=== PATIENT | male | born 1970 | race Caucasian/White ===

== ENCOUNTER 2023-08-23 12:08 | Inpatient (IN) | payer MEDICARE, BC, SELFPAY ==
[2023-08-23] VITALS (15 sets, daily range): BP systolic 79–152; BP diastolic 80–116; PULSE 87–104; BMI 36.3; BMI 36.0
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
[2023-08-23 05:33] LABS: % Basophils 0.6 % (0-2); % Eosinophils 0.2 % (0-6); % Immature Granulocytes 0.4 % (0-0.5); % Lymphocytes 18.3 % (20.5-51.1); % Neutrophils 73.5 % (42.2-75.2); Absolute Basophils 0.1 10^3/uL (0-0.2); Absolute Lymphocytes 1.6 10^3/uL (1.2-3.4); Absolute Monocytes 0.6 10^3/uL (0.1-0.6); Absolute Neutrophils 6.3 10^3/uL (1.4-6.5); Hematocrit 47.3 % (39.0-52.0); Hemoglobin 16.3 g/dL (13.0-18.0); Mean Corp Hgb Conc. 34.5 g/dL (33.0-37.0); Mean Corpuscular Volume 90.1 fL (80.0-94.0); Mean Platelet Volume 10.9 fL (7.4-10.4); Nucleated Red Blood Cells % 0 % (-); Platelet Count 214 10^3/uL (130-400); Red Blood Cell Count 5.25 10^6/uL (4.70-6.10); Red Cell Dist. Width 14.4 % (11.5-14.5); White Blood Cell Count 8.6 10^3/uL (4.8-10.8)
[2023-08-23] MEDS: NSS 1000 IV (06:01)
[2023-08-23 06:03] LABS: ALT (SGPT) 45 U/L (0-50); AST (SGOT) 32 U/L (17-59); Albumin 4.6 g/dl (3.5-5.0); Alkaline Phosphatase 84 U/L (38-126); Blood Urea Nitrogen 14 mg/dl (9-20); Calcium 9.7 mg/dl (8.4-10.2); Carbon Dioxide 21 mmol/L (22-30); Chloride 103 mmol/L (98-107); Estimated Creatinine Clearance 117 ml/min; Glucose 124 mg/dl (70-99); Potassium 3.6 mmol/L (3.5-5.1); Sodium 136 mmol/L (135-145); Total Bilirubin 0.7 mg/dl (0.2-1.3); Total Protein 7.3 g/dl (6.3-8.2); eGFR > 60.00
[2023-08-23 06:07] LABS: Troponin I < 0.012 ng/ml
[2023-08-23] MEDS: ASPIRIN 325 MG PO (07:46)
[2023-08-23 08:09] LABS: Urine Albumin Negative (Neg - Trace); Urine Bilirubin Negative (Negative); Urine Character Clear (Clear); Urine Color Yellow; Urine Glucose Negative (Negative); Urine Ketone 1+ (Negative); Urine Leukocyte Negative (Negative); Urine Nitrite Negative (Negative); Urine Occult Blood Negative (Negative); Urine Urobilinogen Negative (Neg - 1+)
--- NOTE | 2023-08-23 09:38 | PHANOTE ---
08/23/2023, [employer] tech, spoke to pt. to obtain their med. history; pt. states to be taking Tramadol 50 mg Q6HPRN for back pain; per pt., he got this med. filled roughly 6 months ago at the [facility] in [place] and now he was switched over to
[facility] in [place]; does not show up in his pharmacy fill data or [facility] records or PDMP. Called [facility] in [place] and [facility] in [place] and they do not have this med. on his profile. Could not confirm it.
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
[2023-08-23 13:52] LABS: INR 1.03; PT 13.5 Sec (11.4-14.6)
--- NOTE | 2023-08-23 14:56 | CM ---
Patient seen at bedside. Patient states that he lives with his and that they live in a 2 story home. Patient has no DME at home and no past need for VN or SNF services. Patient PCP is Dr. Mcguire and he uses the [facility] in [place] for his
pharmacy needs. Patient plan is to go home with no needs. CM will continue to follow for discharge planning needs.
Plan; home with no needs vs home with VN
[2023-08-23 17:18] LABS: Spinal Fluid Glucose 55 mg/dl (40-70); Spinal Fluid Protein 73 mg/dl (12-60)
[2023-08-23 18:08] LABS: CSF Clarity Clear; CSF Color Colorless; CSF Tube # 1
[2023-08-23 18:09] LABS: Red Cell Count/CSF 228 mm^3; White Cell Count/CSF 4 mm^3 (0-5)
--- NOTE | 2023-08-23 18:12 | PTCARENOTE ---
Received patient to room 418-1. awake alert and oriented. Pain is top of head extends to top of neck, rates a 7 on a scale of 1-10. Oriented to room and surroundings. Aware to call for any assistance getting up. Call friend in reach.
[2023-08-23] MEDS: CYMBALTA DELAYED RELEASE 60 MG PO (21:07)
[2023-08-23] MEDS: LAMICTAL 100 MG PO (21:08)
[2023-08-23] MEDS: MORPHINE SULFATE 2 MG IV (21:08)
[2023-08-23] MEDS: SEROQUEL 50 MG PO (21:08)
[2023-08-24 07:30] VITALS: BP 137/92
[2023-08-24] MEDS: ULTRAM 50 MG PO (07:42)
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
[2023-08-24 11:18] VITALS: BP 125/92; BP 125/94; BP 128/94; PULSE 102; PULSE 98
[2023-08-24 11:20] VITALS: BP 125/92; BP 125/94; BP 128/94; PULSE 98
[2023-08-24] MEDS: MORPHINE SULFATE 2 MG IV ×2 (11:23→20:19)
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
[2023-08-24 14:27] LABS: Erythrocyte Sed Rate 6 mm/hour (0-20)
[2023-08-24 14:33] LABS: C-Reactive Protein < 5.00 mg/L (0.0-10.00)
[2023-08-24 14:50] LABS: Amphetamines Negative (Negative); Barbiturates Negative (Negative); Benzodiazepines Negative (Negative); Buprenorphine Negative (Negative)
[2023-08-24 14:51] LABS: Cocaine Negative (Negative); Marijuana Positive (Negative); Methadone Negative (Negative); Methamphetamines Negative (Negative); Opiates Positive (Negative); Phencyclidine Negative (Negative); Tricyclic Antidepressants Positive (Negative)
[2023-08-24 14:54] LABS: Magnesium 2.2 mg/dl (1.6-2.3)
[2023-08-24 15:12] LABS: Fentanyl, Urine Negative (Negative)
[2023-08-24 15:46] VITALS: BP 146/86
[2023-08-24] MEDS: CYMBALTA DELAYED RELEASE 60 MG PO (21:01)
[2023-08-24] MEDS: SEROQUEL 50 MG PO (21:01)
[2023-08-24] MEDS: LAMICTAL 100 MG PO (21:01)
[2023-08-24 23:00] VITALS: BP 129/86; BP 130/86; BP 130/87; PULSE 93; PULSE 94; PULSE 95
[2023-08-25] MEDS: ULTRAM 50 MG PO ×2 (07:28→20:34)
[2023-08-25 07:30] VITALS: BP 141/84
--- NOTE | 2023-08-25 08:28 | W.PN.NEURO.1 ---
Today's Communication / Plan
-
.
Neuro Assessment/Plan
Assessment
This is a 53-year-old male who presented to on August 23, 2023 with neck pain, numbness in the face and head, and dizziness following a cervical epidural performed a week ago.
-CT Head 08/23/23: No acute intracranial abnormality.
-CT Cervical Spine 08/23/23: (artifact limited) C3-C4 through C6-C7 DJD.
-LP 08/23/23: WBC 4, RBC 228, glucose 55, protein 73
-CTA head/neck 08/24/23: Patent anterior communicating and right posterior communicating artery. Patent bilateral anterior, middle and posterior cerebral arteries. Unremarkable, no finding to suggest dissection.
I.� Tension headache MOH secondary to recent sinusitis.
II.� Peripheral vertigo
III.� Chronic pain syndrome
Plan
-Avoid heavy lifting
-Avoid medications known to cause headache associated
-Lamotrigine level and Lyme screen pending.
-IV Toradol 30 mg, Reglan 10 mg, Benadryl 25 mg Q8h PRN for moderate to severe headache.
-PT/OT evaluations.
-Orthostatic vital signs are negative.
-Follow-up with outpatient Neurologist/pain specialist.
-Neurology will follow on an as-needed basis, please contact our service with any questions/concerns.
Subjective/Objective
Subjective Data
Date of Service: August 25, 2023
No acute events overnight. Patient reports mild improvement of his head numbness and his strength feels improved; still endorsing neck discomfort 5/10 and a mild headache that he describes as posterior head pressure. He also reports intermittent
dizziness with movement. He denies any vision changes, speech/swallow difficulty, nausea, chest pain, palpitations, and shortness of breath.
Objective Data
Vital Signs
Temp Pulse Resp BP Pulse Ox
97.9 F 93 16 129/86 95
08/24/23 23:00 03/21/24 23:00 08/24/23 23:00 08/24/23 23:00 08/24/23 23:00
Lab Results
08/23/23 05:26
08/23/23 05:26
PT 13.5 Sec (11.4-14.6) 08/23/23 13:21
INR 1.03 08/23/23 13:21
Sodium 136 mmol/L (135-145) 08/23/23 05:26
Potassium 3.6 mmol/L (3.5-5.1) 08/23/23 05:
BUN 14 mg/dl (9-20) 08/23/23 05:
Glucose 124 mg/dl (70-99) H 08/23/23 05:26
Calcium 9.7 mg/dl (8.4-10.2) 08/23/23 05:26
Ur Buprenorphine Negative (Negative) 08/24/23 14:09
Patient Allergies
gabapentin Allergy (Verified 08/23/23 05:02)
Impulsive, suicidal thoughts
Review of Systems
-
History Source: Patient
EENT: Negative Blurry Vision, Decreased Vision or Swallowing Difficulty
Respiratory: Negative Cough or Trouble Breathing
Cardiac: Negative Chest Pain or Palpitations
Abdomen/GI: Negative Nausea
Neuro: Dizzy, Headache, Weakness and Numbness; Negative Ataxia, Tremors or Speech Problem
Physical Exam
-
General: No Apparent Distress
Eyes: No Ptosis and PERRLA
HEENT: Normocephalic and Atraumatic
Neck: No Bruits Bilaterally and Full Range of Motion
Respiratory: No Dyspnea
GI: Non-distended
Extremities: No Clubbing, No Cyanosis and No Edema
Psych: Unremarkable
Extended Neurological Exam
Mood & Affect: Mood Unremarkable and Affect Unremarkable
Attention Span & Concentration: Awake, Alert and Interactive
Memory: Unremarkable (AAOx3) and Able to Recall
Tremor: Hand Tremor Absent and Head Tremor Absent
Involuntary Movement: None
Speech: Quality Unremarkable, Quantity Unremarkable and Rate of Production Unremarkable
Cranial Nerve II: Left Eye: Pupillary Reactivity Unremarkable, Pupillary Size Unremarkable and Visual Rhoades Intact
Cranial Nerve II: Right Eye: Pupillary Reactivity Unremarkable, Pupillary Size Unremarkable and Visual Rhoades Intact
Cranial Nerves III, IV, : Extraocular Movement: Extraocular Movement Full in all Directions
Cranial Nerve V: Facial Sensation: Intact to Light Touch
Cranial Nerve VII: Facial Symmetry: Normal Facial Symmetry
Cranial Nerve VIII: Hearing: Unremarkable Hearing to Normal Conversational Volume
Cranial Nerves IX, X: Palate Movement: Palate Elevation Symmetric
Cranial Nerve XI: Shoulder Shrug: Unremarkable
Cranial Nerve XII: Tongue Protusion: Midline
Muscle Strength, Overall: Full Throughout
Muscle Bulk & Tone: Bulk Unremarkable and Tone Unremarkable
Pronator Drift: No Drift in Upper Extremities and No Drift in Lower Extremities
Touch Sensation: Double Simultaneous Stimulation Unremarkable
Coordination: [id number]-[id number] Testing Unremarkable
Data Reviewed
-
CT-A: Report Reviewed and Image Reviewed
CT Head: Report Reviewed and Image Reviewed
CT Cervical Spine: Report Reviewed and Image Reviewed
Medical Test Reports: Report Reviewed (LP)
Labs: Report Reviewed
Lipid Profile: Report Reviewed
HgbA1C: Report Reviewed
Reviewed with: Physician and Patient
Medications
-
Active Medications
Generic Name Dose Route Start Last Admin
Trade Name Freq PRN Reason Stop Dose Admin
Acetaminophen 650 mg 08/23/23 12:31
Acetaminophen 325 Mg Tablet PO 09/20/23 12:30
Q4HPRN PRN
mild pain /fever >100.4
Cyclobenzaprine HCl 10 mg 08/23/23 12:31
Cyclobenzaprine 10 Mg Tablet PO 09/20/23 12:30
Q8HPRN PRN
Back pain
Duloxetine HCl 60 mg 08/23/23 22:00 08/24/23 21:01
Duloxetine Delayed Release 60 Mg Capsule PO 09/20/23 21:59 60 mg
HS GABBI Administration
Lamotrigine 100 mg 08/23/23 22:00 08/24/23 21:01
Lamotrigine 100 Mg Tablet PO 09/20/23 21:59 100 mg
HS GABBI Administration
Morphine Sulfate 2 mg 08/23/23 12:31 08/24/23 20:19
Morphine 2 Mg/Ml Syringe IV 09/06/23 12:30 2 mg
Q4HPRN PRN Administration
severe pain
Quetiapine Fumarate 50 mg 08/23/23 22:00 08/24/23 21:01
Quetiapine 25 Mg Tablet PO 09/20/23 21:59 50 mg
HS GABBI Administration
Tramadol HCl 50 mg 08/23/23 12:31 08/25/23 07:28
Tramadol Hcl 50 Mg Tablet PO 09/20/23 12:30 50 mg
Q6HPRN PRN Administration
moderate pain
Home Medications
Medication Instructions Recorded
lamotrigine 100 mg tablet 100 mg PO HS Neurological 10/25/16
Condition ##0
duloxetine 60 mg capsule,delayed 60 mg PO HS Depression 10/19/17
release
quetiapine 50 mg tablet (Seroquel) 50 mg PO HS Mental Health/Anxiety 10/19/17
Medical Marijuana 1 gummy PO HSPRN PRN mild pain 08/23/23
Medical Marijuana 10 inh inhalation HSPRN PRN mild 08/23/23
pain
Stay Ready Fiber Supplement 3 cap PO HS Supplement 08/23/23
chlorhexidine gluconate 0.12 % 15 ml buccal BID oral hygiene 08/23/23
mouthwash
cyclobenzaprine 10 mg tablet 10 mg PO Q8HPRN PRN Back pain 08/23/23
tramadol 50 mg tablet 50 mg PO Q6HPRN PRN back pain 08/23/23
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
[2023-08-25] MEDS: COMPAZINE 10 MG IV (10:45)
[2023-08-25] MEDS: BENADRYL 25 MG IV (10:46)
[2023-08-25] MEDS: TORADOL 15 MG IV (10:47)
--- NOTE | 2023-08-25 14:11 | CM ---
Patient sleeping in bed. Patient with no needs at this time. CM will continue to follow for discharge planning needs
[2023-08-25 16:01] VITALS: BP 121/81; BP 124/84; BP 131/89; PULSE 105; PULSE 86; PULSE 92
[2023-08-25] MEDS: CYMBALTA DELAYED RELEASE 60 MG PO (21:07)
[2023-08-25] MEDS: LAMICTAL 100 MG PO (21:07)
[2023-08-25] MEDS: SEROQUEL 50 MG PO (21:07)
[2023-08-25 23:00] VITALS: BP 143/85
[2023-08-26 07:00] VITALS: BP 129/77
[2023-08-26] MEDS: ULTRAM 50 MG PO (07:54)
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
--- NOTE | 2023-08-26 11:51 | W.DS.TRANS ---
DC Summary - [employer]
-
Discharge Instructions:
Discharge Diagnosis/Procedures Post epidural spinal headache
Diet Regular
Activity As tolerated
Driving Restrictions As prior to admission
Instructions:
Stand-Alone Forms:
Changes to Home Medications: No
Discharge Medications:
DC Medications w/original date entered in [employer]
lamotrigine 100 mg tablet 100 mg PO HS Neurological Condition ##0 10/25/16
duloxetine 60 mg capsule,delayed release 60 mg PO HS Depression 10/19/17
quetiapine 50 mg tablet (Seroquel) 50 mg PO HS Mental Health/Anxiety 10/19/17
Medical Marijuana 1 gummy PO HSPRN PRN mild pain 08/23/23
Medical Marijuana 10 inh inhalation HSPRN PRN mild pain 08/23/23
Stay Ready Fiber Supplement 3 cap PO HS Supplement 08/23/23
chlorhexidine gluconate 0.12 % mouthwash 15 ml buccal BID oral hygiene 08/23/23
cyclobenzaprine 10 mg tablet 10 mg PO Q8HPRN PRN Back pain 08/23/23
tramadol 50 mg tablet 50 mg PO Q6HPRN PRN back pain 08/23/23
Home Medication Changes
Pending Results: No
[2023-08-26] MEDS: FLUZONE QUAD 2023-2024 SYRINGE 0.5 ML IM (11:58)
[2023-08-26] MEDS: IMITREX 50 MG PO (11:59)
--- NOTE | 2023-08-26 12:16 | CM ---
Patient seen bedside.
Plan is for d/c home to day.
Patient denies home care needs.
IMM completed.
Plan:home no needs.
--- NOTE | 2023-08-26 16:27 | W.DCSUMMARY ---
Discharge Summary
Discharge Data
Date of Admission: 08/23/23
Date of Discharge: 08/26/23
-
Pending Results: No
Hospital Course
Primary diagnosis:
Post epidural injection headache-suspect postprocedural spinal headache vs tension type headache
Secondary diagnosis:
Chronic pain syndrome from cervical and lumbar vertebral disease and has a spinal cord stimulator
Depression
Hospital course:
Patient with chronic cervical and lumbar pain syndrome and has a spinal cord stimulator is followed locally by a pain physician. He had an epidural spinal injection for pain and presented with different nature of pain including headache and facial
numbness. Not a candidate for MRI because of stimulator so had a CT cervical which has poor sensitivity in picking up epidural abscess her hematoma and none was seen. Went on to get an LP which showed no evidence of meningitis or bleeding in the
CSF. There was mild elevation of protein of 73mg/dl which was felt nonspecific. CSF for bacterial cultures were negative. Fungal cultures were pending.
Patient was seen by neurologist who felt this is kind of tension type headache and was given combination of Toradol, Compazine and Benadryl with improvement. Symptomatic treatment did abort his headache and he was not requiring further treatments.
He is maintained on tramadol for chronic pain. Once his headache symptom was better he was discharged home.
Consultants on board:
Neurology Dr He
Discharge Plan
-
Patient Disposition: Home (Routine Discharge)
Discharge Diagnosis/Procedures: Post epidural spinal headache
Diet: Regular
Activity: As tolerated
Driving Restrictions: As prior to admission
Referrals:
Adán Gurrola MD [Active] - in one to two weeks
Kyle Mcguire MD [Family Provider] - in less than 1 week
Prescriptions:
Continued
lamotrigine 100 MG tablet
100 mg PO HS Qty: 0
duloxetine 60 MG capsule,delayed release(DR/EC)
60 mg PO HS
quetiapine [Seroquel] 50 MG tablet
50 mg PO HS
cyclobenzaprine 10 mg Tablet
10 mg PO Q8HPRN PRN (Reason: Back pain)
tramadol 50 mg Tablet
50 mg PO Q6HPRN PRN (Reason: back pain)
Patient Comments:
08/23/2023, per pt., he got this med. filled roughly 6 months ago at the [facility] in [place] and now he was switched over to [facility] in [place]; does not show up in his pharmacy fill data or [facility] records or PDMP. Called [facility] in
[place] and [facility] in [place] and they do not have this med. on his profile.
chlorhexidine gluconate 0.12 % Mouthwash
15 ml BUCCAL BID
Patient Comments:
08/23/2023, brushed onto gums per pt.
Medical Marijuana
10 inh inhalation HSPRN PRN (Reason: mild pain)
Medical Marijuana
1 gummy PO HSPRN PRN (Reason: mild pain)
Stay Ready Fiber Supplement
3 cap PO HS
Discharge Orders:
Discharge Patient (As Directed); Ordered 08/26/23
Ordered By: Adán Gurrola
Discharge Date and Time
Discharge Date/Time: 08/26/23 12:50
[2023-08-26 18:41] LABS: Lamotrigine (Lamictal) 1.7 ug/mL (3.0-15.0)
[2023-08-28 15:50] LABS: Lyme Antibody Screen, EIA Negative (Negative)
== END 2023-08-26 12:50 | disposition home or self-care (01) | DRG 918 ==
LOC: 4 WEST ACU 12:08
PROVIDERS: Radiology Vascular & Interventional Radiology; ADMITTING PHYSICIAN Internal Medicine; CONSULT PHYSICIAN Psychiatry & Neurology Neurology; EMERGENCY PHYSICIAN Student in an Organized Health Care Education/Training Program; FAMILY PHYSICIAN Internal Medicine
PROC: B01B1ZZ Fluoroscopy of Spinal Cord using Low Osmolar Contrast (ICD-10-PCS; 2023-08-23)
PROC: 009U3ZX Drainage of Spinal Canal, Percutaneous Approach, Diagnostic (ICD-10-PCS; 2023-08-23)
PROC: 3E0234Z Introduction of Serum, Toxoid and Vaccine into Muscle, Percutaneous Approach (ICD-10-PCS; 2023-08-26)
DX: T88.59XA Other complications of anesthesia, initial encounter (principal); T41.3X5A Adverse effect of local anesthetics, initial encounter; G44.40 Drug-induced headache, not elsewhere classified, not intractable; Y84.8 Other medical procedures as the cause of abnormal reaction of the patient, or of later complication, without mention of misadventure at the time of the procedure; Y70.1 Therapeutic (nonsurgical) and rehabilitative anesthesiology devices associated with adverse incidents; Y92.531 Health care provider office as the place of occurrence of the external cause; G44.209 Tension-type headache, unspecified, not intractable; R53.1 Weakness; H81.399 Other peripheral vertigo, unspecified ear; G89.21 Chronic pain due to trauma; F31.9 Bipolar disorder, unspecified; M54.50 Low back pain, unspecified; M54.12 Radiculopathy, cervical region; M54.2 Cervicalgia; G47.00 Insomnia, unspecified; N40.0 Benign prostatic hyperplasia without lower urinary tract symptoms; J30.9 Allergic rhinitis, unspecified; F10.20 Alcohol dependence, uncomplicated; K21.9 Gastro-esophageal reflux disease without esophagitis; E66.9 Obesity, unspecified; Z68.36 Body mass index [BMI] 36.0-36.9, adult; Z87.891 Personal history of nicotine dependence; Z88.8 Allergy status to other drugs, medicaments and biological substances; Z87.828 Personal history of other (healed) physical injury and trauma; Z23 Encounter for immunization
CPT/HCPCS: 62328; 70450; 70496; 70498; 72126; 80053; 80175; 80306; 80307; 81003; 82945; 83735; 84157; 84484; 85025; 85379; 85610; 85652; 86140; 86618; 87015; 87070; 87102; 87205; 89051; 93005; 97162; 99284; Q9967

== ENCOUNTER 2023-08-27 20:34 | Emergency (ER) | payer MEDICARE, BC, SELFPAY ==
[2023-08-27 20:36] VITALS: BP 146/98
[2023-08-27 20:56] VITALS: BP 136/79
[2023-08-27 21:06] LABS: % Basophils 0.5 % (0-2); % Eosinophils 0.5 % (0-6); % Immature Granulocytes 0.1 % (0-0.5); % Lymphocytes 12.8 % (20.5-51.1); % Monocytes 7.3 % (1.7-9.3); % Neutrophils 78.8 % (42.2-75.2); Absolute Lymphocytes 0.9 10^3/uL (1.2-3.4); Absolute Monocytes 0.5 10^3/uL (0.1-0.6); Absolute Neutrophils 5.8 10^3/uL (1.4-6.5); Hematocrit 46.9 % (39.0-52.0); Hemoglobin 16.2 g/dL (13.0-18.0); Mean Corp Hgb Conc. 34.5 g/dL (33.0-37.0); Mean Corpuscular Hgb 31.5 pg (27.0-31.0); Mean Corpuscular Volume 91.1 fL (80.0-94.0); Mean Platelet Volume 11.4 fL (7.4-10.4); Nucleated Red Blood Cells % 0 % (-); Platelet Count 199 10^3/uL (130-400); Red Blood Cell Count 5.15 10^6/uL (4.70-6.10); Red Cell Dist. Width 14.6 % (11.5-14.5); White Blood Cell Count 7.4 10^3/uL (4.8-10.8)
[2023-08-27 21:18] LABS: ALT (SGPT) 48 U/L (0-50); AST (SGOT) 32 U/L (17-59); Albumin 4.8 g/dl (3.5-5.0); Alkaline Phosphatase 76 U/L (38-126); Blood Urea Nitrogen 8 mg/dl (9-20); Calcium 9.8 mg/dl (8.4-10.2); Carbon Dioxide 22 mmol/L (22-30); Chloride 101 mmol/L (98-107); Glucose 128 mg/dl (70-99); Potassium 3.6 mmol/L (3.5-5.1); Sodium 134 mmol/L (135-145); Total Bilirubin 0.7 mg/dl (0.2-1.3); Total Protein 7.5 g/dl (6.3-8.2); eGFR > 60.00
[2023-08-27] MEDS: NSS 1000 IV (21:22)
[2023-08-27 22:03] VITALS: BP 118/95
[2023-08-27 23:00] VITALS: BP 145/98
[2023-08-28] VITALS: BP 132/96
--- NOTE | 2023-08-28 00:12 | ED.GENMED ---
History of Present Illness
General
Chief Complaint: Numbness
Source: patient and significant other
Exam Limitations: none
Time Seen by Provider: 08/27/23 20:47
Travel History
Have you had any contact with someone who has COVID-19?: No
Do you have any symptoms of coronavirus? Fever > 100 degrees, chills, cough, shortness of breath, sore throat, loss of taste or smell, muscle aches, or headache?: No
History of Present Illness
History of Present Illness:
53-year-old male who presents for evaluation of left-sided numbness. The patient was recently here and admitted and had several studies including a CTA, lumbar puncture. Patient was seen by neurology. Patient was treated symptomatically and
improved. Patient states he was discharged yesterday and had been doing well. His symptoms started to come back today but today he began to have left-sided numbness in his leg, arm and face. He also started to have tingling all over his head like
before. No chest pain. No shortness of breath.
Past History
Past History
ED Past Medical History: Other (Chronic back pain, bipolar disorder, terminal ileum mass)
Social History
Tobacco: Non-smoker
Phy Exam
Physical Exam
Physical Exam:
CONSTITUTIONAL Patient alert and oriented to person, place and time. Well-appearing. Vital signs reviewed.
HEAD atraumatic, normocephalic.
EYES eyelids normal to inspection, Pupils equally round and reactive to light, Extraocular muscles intact, Conjunctiva normal, Sclera normal.
NECK normal range of motion, Trachea midline, no jugular venous distention.
RESPIRATORY CHEST No respiratory distress noted, Chest expansion equal, Bilateral breath sounds clear.
CARDIOVASCULAR regular and tachycardic, Heart sounds normal.
ABDOMEN abdomen nontender, Bowel sounds normal. No distention.
BACK normal inspection, no obvious deformities
UPPER EXTREMITY range of motion normal, Motor strength normal, no cyanosis, no edema.
LOWER EXTREMITY range of motion normal, Motor strength normal, no cyanosis, no edema.
NEURO Speech normal, No focal motor deficits, Maris coma scale 15, Memory normal, Cranial Nerves intact to screening exam. No pronator drift. Normal [id number]. Normal [id number]. Normal sensation to touch. Equal sensation
bilaterally.
SKIN skin warm, dry, and normal in color.
PSYCHIATRIC patient oriented to person place and time, Normal affect.
Course
Orders/Labs/Results
Orders:
Orders
08/27/23 20:38
Electrocardiogram (*1) Urgent
Reason for Study: Tachycardia
08/27/23 20:39
EKG- Treatment ONCE
08/27/23 20:55
Complete Blood Count/With Diff Urgent
Comprehensive Metabolic Panel Urgent
08/27/23 21:04
CT Head W/o Iv Contrast Urgent
Comment:
Reason For Exam: L sided numbness
08/27/23 21:21
0.9% Sodium Chloride 1000 ml [Nss] 1,000 ml IV BOLUS
Abnormal Lab Results
08/27/23
20:55
MCH 31.5 H pg
(27.0-31.0)
RDW 14.6 H %
(11.5-14.5)
MPV 11.4 H fL
(7.4-10.4)
Absolute Lymphs (auto) 0.9 L 10^3/uL
(1.2-3.4)
Neutrophils % 78.8 H %
(42.2-75.2)
Lymphocytes % 12.8 L %
(20.5-51.1)
Sodium 134 L mmol/L
(135-145)
BUN 8 L mg/dl
(9-20)
Glucose 128 H mg/dl
(70-99)
08/27/23 20:55
08/27/23 20:55
Vital Signs
Initial and Last Documented VS:
Initial Vital Signs
Temp Pulse Resp BP Pulse Ox
97.8 F 146 24 146/98 97
08/27/23 20:36 08/27/23 20:36 08/27/23 20:36 08/27/23 20:36 08/27/23 20:36
Last Documented Vital Signs
Temp Pulse Resp BP Pulse Ox
97.8 F 111 18 132/96 98
08/27/23 20:36 08/28/23 00:00 08/28/23 00:00 08/28/23 00:00 08/28/23 00:00
MDM/Problems Addressed
MDM/Problems Addressed:
Numbness
*Radiology
Radiology exam reviewed: preliminary read by ED provider (No obvious intracranial hemorrhage) and radiology read reviewed
*Pulse Oximetry
Patient hypoxic: no
*EKG
Interpreted by ED Provider?: Yes
Interpretation: abnormal
Rate: tachycardiac
Rhythm: sinus
Ischemia: non-specific ST changes
*Leveling Machine Operator Interpretation
Rate: tachycardiac
Interpretation: abnormal
Rhythm: sinus
*Critical Care Note
Total Time (30-74mins, 75-104mins- exclusive of procedures): Not Applicable
Data Reviewed
Review of Other/Old Records Reveals: Radiology Studies (CTA results reviewed from August 23) and Discharge Summary (Discharge summary from yesterday reviewed)
Source: patient
Prescriptions/Medications Considered But Not Given:
Consider tPA but NIH stroke scale is 0
Further Testing Considered But Not Given:
Considered MRI but patient is unable to obtain MRI due to his stimulator
Patient Management
Discussion with other providers: Paste Mixing Supervisor (Neurology)
Escalation/DeEscalation of care consider admission/obs:
The patient has no objective findings. In fact, his sensory exam is completely normal. The patient admits that it feels like an internal finding and symptom. He overall appears well. He had a recent extensive workup including CTA that showed no
carotid disease. I do not see any reason he could have embolic disease. His heart rate is much improved on reassessment at 101 and sinus. His repeat exam is otherwise normal. Even on initial evaluation despite his symptoms, he was laughing and
joking with staff and his significant other. Case was discussed with neurology. Neurology recommends outpatient follow-up with neurology
ED Attending Note
-
Portions of this chart may have been created with voice recognition software.� Occasional wrong word or��sound alike� substitutions may have occurred due to the inherent limitations of voice recognition software.
Discharge Plan
Departure
Patient Disposition: Home (Routine Discharge)
Date of Disposition: 08/28/23
Time of Disposition: 00:19
Patient with high blood pressure during this ER visit?: Yes
Discharge Problem:
Numbness
Prescriptions:
No Action
lamotrigine 100 MG tablet
100 mg PO HS Qty: 0
duloxetine 60 MG capsule,delayed release(DR/EC)
60 mg PO HS
quetiapine [Seroquel] 50 MG tablet
50 mg PO HS
cyclobenzaprine 10 mg Tablet
10 mg PO Q8HPRN PRN (Reason: Back pain)
tramadol 50 mg Tablet
50 mg PO Q6HPRN PRN (Reason: back pain)
Patient Comments:
08/23/2023, per pt., he got this med. filled roughly 6 months ago at the [facility] in [place] and now he was switched over to [facility] in [place]; does not show up in his pharmacy fill data or [facility] records or PDMP. Called [facility] in
[place] and [facility] in [place] and they do not have this med. on his profile.
chlorhexidine gluconate 0.12 % Mouthwash
15 ml BUCCAL BID
Patient Comments:
08/23/2023, brushed onto gums per pt.
Medical Marijuana
10 inh inhalation HSPRN PRN (Reason: mild pain)
Medical Marijuana
1 gummy PO HSPRN PRN (Reason: mild pain)
Stay Ready Fiber Supplement
3 cap PO HS
Referrals:
Kyle Mcguire MD [Family Provider] -
Activity Restrictions/Additional Instructions:
Numbness
Please follow-up with neurology as planned. Please see your doctor in the next 2 to 3 days for follow-up and reevaluation return immediately for worsening symptoms, motor weakness of any kind, chest pain, shortness of breath or any other concerns.
Please take 81 mg of aspirin daily until further advised by your doctor or neurology
Interventions
Interventions:
*Risk Screen - Suicide Last Done: 08/27/23 20:36
*Neglect/Abuse Screening Last Done: 08/27/23 20:36
ED- Neurological Assessment Last Done: 08/27/23 20:50
== END 2023-08-28 00:45 | disposition home or self-care (01) ==
LOC: EMR 20:34
PROVIDERS: EMERGENCY PHYSICIAN Emergency Medicine; FAMILY PHYSICIAN Internal Medicine
DX: R20.0 Anesthesia of skin (principal); R20.2 Paresthesia of skin; R03.0 Elevated blood-pressure reading, without diagnosis of hypertension; G89.29 Other chronic pain; F31.9 Bipolar disorder, unspecified; M54.9 Dorsalgia, unspecified; Z88.8 Allergy status to other drugs, medicaments and biological substances
CPT/HCPCS: 99284; 96360; 70450; 80053; 85025; 93005

== ENCOUNTER → 2023-08-28 12:41 | Outpatient (REF) | payer MEDICARE, BC, SELFPAY | LOC: RAD 12:41 | PROVIDERS: ATTENDING PHYSICIAN Psychiatry & Neurology Neurology; FAMILY PHYSICIAN Internal Medicine | DX: M54.50 Low back pain, unspecified (principal) | CPT/HCPCS: 72040 ==

== ENCOUNTER → 2023-12-28 10:56 | Outpatient (REF) | payer MEDICARE, BC, SELFPAY | LOC: RAD 10:56 | PROVIDERS: ATTENDING PHYSICIAN Psychiatry & Neurology Neurology; FAMILY PHYSICIAN Internal Medicine | DX: M54.16 Radiculopathy, lumbar region (principal) | CPT/HCPCS: 72100 ==

== ENCOUNTER → 2024-04-18 07:45 | Outpatient (REF) | payer MEDICARE, BC, SELFPAY | LOC: RAD 07:45 | PROVIDERS: ATTENDING PHYSICIAN Hospitalist; FAMILY PHYSICIAN Internal Medicine; REFERRING PHYSICIAN Physician Assistant Surgical | DX: R10.31 Right lower quadrant pain (principal); M54.16 Radiculopathy, lumbar region; M47.816 Spondylosis without myelopathy or radiculopathy, lumbar region; M54.14 Radiculopathy, thoracic region | CPT/HCPCS: 72072; 72100; 73130; 74177; Q9967 ==

== ENCOUNTER 2024-04-19 13:44 | Emergency (ER) | payer MEDICARE, BC, SELFPAY ==
[2024-04-19 13:52] VITALS: BP 154/104
--- NOTE | 2024-04-19 15:22 | ED.GENMED ---
History of Present Illness
General
Chief Complaint: Abdominal Pain
Source: patient
Time Seen by Provider: 04/19/24 15:08
History of Present Illness
History of Present Illness:
53-year-old male presents to the emergency room complaining of abdominal pain. Pain is located in the right lower quadrant rating to his back. Describes it as a hot sensation. Patient has been experiencing this pain for the past 6 to 8 weeks.
Seems worse today. He did have a CT scan yesterday which did not show any pathology. He called his primary care provider today who told him to go to the emergency room if the pain was worse. Patient is nauseous at times but no vomiting. No
diarrhea constipation.
Past History
Past History
ED Past Medical History: Other (Chronic back pain, bipolar disorder, terminal ileum mass)
Social History
Tobacco: Non-smoker
Phy Exam
Physical Exam
Physical Exam:
General: Awake, Alert, Oriented X3. No acute distress.
Vitals: unremarkable
Head: Atraumatic
Eyes: Pupils equal, EOMI
Throat: Airway intact, no exudates
Neck: Trachea midline
Abdomen: Minimal tenderness right lower quadrant, no rebound, no guarding
Neuro: Nonfocal
Skin: Warm, dry, no rash
Extremities: pulses equal b/l, no edema
Course
Orders/Labs/Results
Orders:
Orders
04/19/24 15:17
CMP [Comprehensive Metabolic Panel] Urgent
Complete Blood Count/With Diff Urgent
04/19/24 15:22
Ketorolac [Toradol] 15 mg IV NOW STA
04/19/24 15:34
Lipase Urgent
Urinalysis Reflex To Culture Urgent
Date Specimen was Collected: 04/19/24
Time Specimen was Collected: 15:31
Abnormal Lab Results
04/19/24 04/19/24
15:17 15:34
MCH 31.3 H pg
(27.0-31.0)
RDW 14.7 H %
(11.5-14.5)
MPV 11.3 H fL
(7.4-10.4)
Absolute Lymphs (auto) 1.0 L 10^3/uL
(1.2-3.4)
Lymphocytes % 20.0 L %
(20.5-51.1)
Monocytes % 11.9 H %
(1.7-9.3)
Urine Ketones Trace A
(Negative)
04/19/24 15:17
04/19/24 15:17
Vital Signs
Initial and Last Documented VS:
Initial Vital Signs
Temp Pulse Resp BP Pulse Ox
98.5 F 119 20 154/104 100
04/19/24 13:52 04/19/24 13:52 04/19/24 13:52 04/19/24 13:52 04/19/24 13:52
Last Documented Vital Signs
Temp Pulse Resp BP Pulse Ox
98.5 F 110 18 150/90 98
04/19/24 13:52 04/19/24 17:24 04/19/24 17:24 04/19/24 17:24 04/19/24 17:24
MDM/Problems Addressed
Differential Diagnosis Includes:
exacerbation of chronic abdominal pain, IBS, uti.
MDM/Problems Addressed:
Patient presents with increased pain today been having pain for the past [address] yesterday was unremarkable. Labs today are similarly unremarkable. Unclear what the source of the patient's discomfort is but there does not appear to be any
evidence for a unstable process. Will prescribe Bentyl to see if this helps. Patient does have an appointment with GI in a week which I believe is the appropriate next step.
*Radiology
Radiology exam reviewed: radiology read reviewed
*Critical Care Note
Total Time (30-74mins, 75-104mins- exclusive of procedures): Not Applicable
ED Attending Note
-
Portions of this chart may have been created with voice recognition software.� Occasional wrong word or��sound alike� substitutions may have occurred due to the inherent limitations of voice recognition software.
Discharge Plan
Departure
Patient Disposition: Home (Routine Discharge)
Date of Disposition: 04/19/24
Time of Disposition: 17:13
Patient with high blood pressure during this ER visit?: Yes
Condition: Good
Discharge Problem:
Abdominal pain
Instructions: Abdominal Pain, BLOOD PRESSURE
Prescriptions:
New
dicyclomine 20 mg tablet
20 mg PO QID PRN (Reason: abdominal pain) Qty: 20 0RF
No Action
lamotrigine 100 MG tablet
100 mg PO HS Qty: 0
duloxetine 60 MG capsule,delayed release(DR/EC)
60 mg PO HS
quetiapine [Seroquel] 50 MG tablet
50 mg PO HS
cyclobenzaprine 10 mg Tablet
10 mg PO Q8HPRN PRN (Reason: Back pain)
tramadol 50 mg Tablet
50 mg PO Q6HPRN PRN (Reason: back pain)
Patient Comments:
08/23/2023, per pt., he got this med. filled roughly 6 months ago at the [facility] in [place] and now he was switched over to [facility] in [place]; does not show up in his pharmacy fill data or [facility] records or PDMP. Called [facility] in
[place] and [facility] in [place] and they do not have this med. on his profile.
chlorhexidine gluconate 0.12 % Mouthwash
15 ml BUCCAL BID
Patient Comments:
08/23/2023, brushed onto gums per pt.
Medical Marijuana
10 inh inhalation HSPRN PRN (Reason: mild pain)
Medical Marijuana
1 gummy PO HSPRN PRN (Reason: mild pain)
Stay Ready Fiber Supplement
3 cap PO HS
Referrals:
Kyle Mcguire MD [Family Provider] -
Interventions
Interventions:
*Risk Screen - Suicide Last Done: 04/19/24 13:55
*General Assessment Last Done: 04/19/24 13:55
*Neglect/Abuse Screening Last Done: 04/19/24 13:55
*ED COVID-19 Vaccine History Last Done: 04/19/24 13:55
*Nursing Disposition Last Done: 04/19/24 17:24
HR-Nobhal-Xfocdfqjer Assessment Last Done: 04/19/24 15:18
Discharge Date and Time
Discharge Date/Time: 04/19/24 17:25
Print Language: SINHALA
[2024-04-19] MEDS: TORADOL 15 MG IV (15:34)
[2024-04-19 15:50] LABS: ALT (SGPT) 43 U/L (0-50); AST (SGOT) 39 U/L (17-59); Albumin 4.6 g/dl (3.5-5.0); Alkaline Phosphatase 73 U/L (38-126); Blood Urea Nitrogen 13 mg/dl (9-20); Calcium 9.7 mg/dl (8.4-10.2); Carbon Dioxide 23 mmol/L (22-30); Chloride 101 mmol/L (98-107); Glucose 97 mg/dl (70-99); Potassium 4.1 mmol/L (3.5-5.1); Sodium 138 mmol/L (135-145); Total Bilirubin 0.4 mg/dl (0.2-1.3); Total Protein 7.2 g/dl (6.3-8.2); eGFR > 60.00
[2024-04-19 15:52] LABS: % Basophils 0.4 % (0-2); % Eosinophils 0.8 % (0-6); % Immature Granulocytes 0.2 % (0-0.5); % Monocytes 11.9 % (1.7-9.3); % Neutrophils 66.7 % (42.2-75.2); Absolute Monocytes 0.6 10^3/uL (0.1-0.6); Absolute Neutrophils 3.3 10^3/uL (1.4-6.5); Hematocrit 46.6 % (39.0-52.0); Hemoglobin 16.3 g/dL (13.0-18.0); Mean Corpuscular Hgb 31.3 pg (27.0-31.0); Mean Corpuscular Volume 89.6 fL (80.0-94.0); Mean Platelet Volume 11.3 fL (7.4-10.4); Nucleated Red Blood Cells % 0 % (-); Platelet Count 184 10^3/uL (130-400); Red Cell Dist. Width 14.7 % (11.5-14.5); White Blood Cell Count 4.9 10^3/uL (4.8-10.8)
[2024-04-19 15:56] LABS: Urine Albumin Negative (Neg - Trace); Urine Bilirubin Negative (Negative); Urine Character Clear (Clear); Urine Color Yellow; Urine Glucose Negative (Negative); Urine Ketone Trace (Negative); Urine Leukocyte Negative (Negative); Urine Nitrite Negative (Negative); Urine Occult Blood Negative (Negative); Urine Urobilinogen Negative (Neg - 1+)
[2024-04-19 16:02] LABS: Lipase 115 U/L (23-300)
[2024-04-19 17:24] VITALS: BP 150/90
== END 2024-04-19 17:25 | disposition home or self-care (01) ==
LOC: EMR 13:44
PROVIDERS: Emergency Medicine; EMERGENCY PHYSICIAN Emergency Medicine; FAMILY PHYSICIAN Internal Medicine
DX: R10.31 Right lower quadrant pain (principal); R03.0 Elevated blood-pressure reading, without diagnosis of hypertension
CPT/HCPCS: 99284; 96374; 80053; 81003; 83690; 85025

== ENCOUNTER 2024-04-25 06:20 | Day surgery (SDC) | payer MEDICARE, BC, SELFPAY | END 2024-04-25 16:14 | disposition home or self-care (01) | LOC: GI 06:20 | PROVIDERS: ATTENDING PHYSICIAN Internal Medicine | DX: R10.31 Right lower quadrant pain (principal); K64.8 Other hemorrhoids; Z98.0 Intestinal bypass and anastomosis status | CPT/HCPCS: 45380; 88305 ==

== ENCOUNTER → 2025-04-25 10:20 | Outpatient (REF) | payer MEDICARE, BC, SELFPAY | LOC: HWRAD 10:20 | PROVIDERS: ATTENDING PHYSICIAN Psychiatry & Neurology Neurology; FAMILY PHYSICIAN Internal Medicine | DX: M54.12 Radiculopathy, cervical region (principal) | CPT/HCPCS: 72125 ==

== ENCOUNTER → 2025-04-29 07:44 | Outpatient (REF) | payer MEDICARE, BC, SELFPAY | LOC: EMG 07:44 | PROVIDERS: ATTENDING PHYSICIAN Psychiatry & Neurology Neurology; FAMILY PHYSICIAN Internal Medicine | DX: M54.12 Radiculopathy, cervical region (principal) | CPT/HCPCS: 95886; 95911 ==